=== PATIENT | female | born 1995 | race Caucasian/White ===

== ENCOUNTER 2016-08-02 04:51 | Emergency (ER) | payer OTHER ==
--- NOTE | 2016-08-02 06:42 | ED NURSING NOTES ---
Clinical Report - Nurses [facility] [address] [place] [address] 08/02/2016 4:52 Patient: DANIELLE TOWNSEND TRIAGE Triage time 04:57 Aug 02 2016. Acuity: LEVEL 4. Chief Complaint: PELVIC PAIN and PAINFUL URINATION. --05:01 Craig Campuzano R.N. 04:57 08/02/16. BP: 122/76. HR: 75. RR: 18. O2 saturation: 100%. Temp: 97.7 F. Pain level now 10/27. --05:01 Craig Campuzano R.N. Weight: 56.6 kg stated. Height/Length: 63 inches Per Patient. BMI: 22.1. Growth Chart Percentile: Weight: 44.2%. Height/Length: 30.5%. --04:59 Craig Campuzano R.N. Medications None. --04:58 Craig Campuzano R.N. Allergies Naproxen. --04:58 Craig Campuazno R.N. History Arrived by private vehicle. ( Pt reports abd pain that started an hour ago and urinary pain that started at 2am). This started today. SOCIAL HX: Never smoker. Alcohol use; consumes beer occasionally. No drug use. --05:01 Craig Campuzano R.N. PROBLEMS: Abdominal Pain. Gastritis. LNMP - Last Normal Menstrual Period. Migraine Headache. Back Pain. --04:59 Craig Campuzano R.N. ADDITIONAL SURGERIES: Dental Surgery. --04:59 Craig Campuzano R.N. Interventions ID band on patient. To treatment room. --05:01 Craig Campuzano R.N. PHYSICAL ASSESSMENT GENERAL / NEURO / PSYCH: Alert. Oriented X 4. Appears in no acute distress. RESPIRATORY: Respirations not labored. Breath sounds within normal limits. CVS: Normal heart rate and rhythm. Capillary refill less than 2 seconds. GI / : Abdominal tenderness in the periumbilical area. SKIN: Skin is warm and dry. --05:01 Craig Campuzano R.N. GENERAL / NEURO / PSYCH: Alert. Oriented X 4. Appears in no acute distress. Appears in pain. RESPIRATORY: Respirations not labored. Breath sounds within normal limits. CVS: Capillary refill less than 2 seconds. GI / : Abdomen nontender. No vaginal bleeding. No vaginal discharge. No genital lesions noted. SKIN: Skin is warm and dry. --06:44 Craig Campuzano R.N. NURSING PROGRESS NOTES Reassurance given to the patient. Call light placed in reach. Side rails up x 1. --05:01 Craig Campuzano R.N. 05:19 08/02/2016 Zofran ODT (Ondansetron) PO Oral Disintegrating Tablets 4 mg given. Allergies verified and confirmed 5 rights. --05:19 Thea Guzman R.N. ( pt given sprite to "wash down" Zofran, per pt request and verbal ok from EDMD). --05:20 Thea Guzman R.N. 05:32 08/02/2016 Toradol (Ketorolac Tromethamine) IM 60 mg given. Allergies verified and confirmed 5 rights. (R deltoid). --05:32 Craig Campuzano R.N. DISPOSITION / DISCHARGE Departure time: 06:58 Aug 02 2016. Condition at departure: improved. No learning barriers present. Discharge instructions provided and reviewed with the patient. Reviewed warnings. Reviewed medication(s) information. Patient verbalized understanding. The patient was discharged by the physician. She was discharged home. She left the Emergency Department ambulatory and via private vehicle. Patient driving. ( Pt verbalized understanding of discharge instructions and follow up care as well as medication admin.). --06:58 Craig Campuznao R.N. 06:56 08/02/16. BP: 141/91. HR: 66. RR: 18. O2 saturation: 100%. Temp: 97.8 F. Pain level now 08/27. --06:58 Craig Campuzano R.N. Locked/Released at 08/02/2016 6:59 by Craig Campuzano R.N.
--- NOTE | 2016-08-02 06:42 | ED ORDER SUMMARY ---
..... Patient: DANIELLE TOWNSEND OrderSheet [facility] VisitID: [id number] [address] [place] [address] 20y, F Registration Date/Time: 08/02/2016 ORDER SHEET Weight: 56.6 kg (stated) Allergies: Naproxen GENERAL ORDERS: UA-Culture if indicated Urgent (04:55 08/02/2016 AMcQuoid ER Tech1 per protocol) (4:58 AMcQuoid ER Tech1) Urine Urgent (04:55 08/02/2016 AMcQuoid ER Tech1 per protocol) (4:58 AMcQuoid ER Tech1) CT Abd/Pel wo Cont (Left side) Urgent (05:26 08/02/2016 Hafsa Gold) (Ack 5:37 AMcQuoid ER Tech1) (5:50 Dallin) Not a true NSAID allergy MEDICATION ORDERS: Zofran ODT PO 4 mg (NOW) (05:18 08/02/2016 Hafsa Gold) (5:19 Stacy R.N.) Toradol IM 60 mg (NOW) (05:25 08/02/2016 Hafsa Gold) (5:32 Teo R.N.) Not a true NSAID allergy IV FLUIDS: ORDER SHEET NOTES: [Electronically signed by Dexter Gonzalez Dr. (06:44 08/02/2016)] [Electronically signed by Craig Campuzano R.N. (06:59 08/02/2016)] [Electronically locked/signed by Craig Campuzano R.N. (06:59 08/02/2016)]
--- NOTE | 2016-08-02 06:42 | ED CLINICAL REPORT ---
Clinical Report - Physicians/Mid Levels [facility] [address] [place] [address] 08/02/2016 4:52 Patient: DANIELLE TOWNSEND Time Seen: 05:09; initial patient contact. Arrived- By private vehicle. Historian- patient. HISTORY OF PRESENT ILLNESS Chief Complaint: PELVIC PAIN. This started just prior to arrival and still present. The symptoms are described as moderate. Modifying factors. Not worsened by anything. Not relieved by anything. The patient has had abdominal pain, pelvic pain and flank pain. No vaginal pain, low back pain, pain with urination, urinary frequency or urgency of urination. No hematuria. She has had irregular periods (Implanon, at baseline). control measures utilized. Denies current . Similar symptoms previously: Several times. Recent medical care: Not recently seen/assessed. REVIEW OF SYSTEMS The patient has had nausea. No vomiting, diarrhea or vomiting. She has had nausea. All systems otherwise negative, except as recorded above. PAST HISTORY ( Abdominal Pain. Gastritis. Migraine Headache. Back Pain. Kidney stones SURGERIES: Dental Surgery.). Medications: None. Allergies: Naproxen. SOCIAL HISTORY Never smoker. Occasional alcohol use. No drug use. ADDITIONAL NOTES The nursing notes have been reviewed with agreement regarding the chief complaint, PMH and patient medications and allergies. PHYSICAL EXAM Vital Signs: 08/02/2016 04:57 BP: 122/76. HR: 75. RR: 18. O2 saturation: 100%. Temp: 97.7 F. Have been reviewed as normal. Appearance: Alert. Oriented X3. No acute distress. HEENT: Normal external inspection. ENT: Pharynx normal. CVS: Heart sounds normal. Rate normal. Rhythm normal. Respiratory: No respiratory distress. Breath sounds normal. Abdomen: Soft. Mild tenderness in the left side of the abdomen with guarding present. No rebound tenderness. Bowel sounds normal. No organomegaly. No mass. Back: Mild CVA tenderness on the left. Skin: Normal skin color. No rash. Extremities: No lower extremity edema. Neuro: Oriented X 3. LABS, X-RAYS, AND EKG Abdominal CT: 1-2 mm stone in distal ureter at the UVJ w/ moderate hydronephrosis. Study type: renal stone evaluation. Abdominal CT performed without contrast. The study was independently viewed by me, interpreted by the radiologist and discussed with the radiologist. Prior studies were not available for comparison. Interpretation time: 06:40. Laboratory Tests: UA-Culture if indicated: ([place]: 08/02/2016 05:00) ( MsgRcvd 08/02/2016 05:13) Final results Test Result Flag Units (Reference) URINE COLOR YELLOW URINE APPEARANCE CLEAR URINE GLUCOSE NEGATIVE (NEGATIVE) URINE BILIRUBIN NEGATIVE (NEGATIVE) URINE KETONE NEGATIVE (NEGATIVE) URINE SPECIFIC GRAVITY >= 1.030 (1.010-1.030) URINE PH 6.0 (5.0-8.0) URINE PROTEIN NEGATIVE (NEGATIVE) URINE UROBILINOGEN 0.2 EU/dL (0.2-1.0) URINE NITRITE NEGATIVE (NEGATIVE) URINE BLOOD 3+ (NEGATIVE) URINE LEUK ESTERASE NEGATIVE (NEGATIVE) URINE RBC 5-10 rbc/hpf (0-1) URINE WBC 0-1 wbc/hpf (0-1) URINE EPITHELIAL CELLS 0-1 EPI/hpf (0-5) URINE BACTERIA NONE SEEN (NONE SEEN) URINE COMMENT CULT NOT INDICATED URINE CULTURES ARE SET-UP BASED ON THE FOLLOWING CRITERIA:POSITIVE NITRITEPOSITIVE LEUKOCYTE ESTERASEGREATER THAN 10 WHITE BLOOD CELLSMODERATE (2+) OR GREATER BACTERIA Urine: ([place]: 08/02/2016 05:00) ( MsgRcvd 08/02/2016 05:11) Final results Test Result Flag Units (Reference) URINE NEGATIVE . PROGRESS AND PROCEDURES Disposition: Discharged home in good and improved condition. Condition: good. CLINICAL IMPRESSION Ureterolithiasis (single stone) in the left ureter with renal colic and hydronephrosis. INSTRUCTIONS Do not work today or go to school today. Your Current Medications: CONTINUE TAKING THE FOLLOWING MEDICATIONS: None*. Prescription Medications: Hydrocodone/APAP 5mg / 325mg: take 1 orally every 6 hours as needed for pain. Dispense fifteen (15). No refill. Zofran (orally disintegrating tablets) 4 mg: take 1 orally every 6 hours as needed for nausea and vomiting. Dispense ten (10). No refill. Substitution is permissible. Flomax 0.4 mg: take 1 orally every 6 hours. Take dose every day 30 minutes after the same meal. Dispense fifteen (15). No refills. Substitution is permissible. Follow-up: Follow up with your doctor in about four days if not better. Call for an appointment. Screening today revealed the patient's blood pressure to be in the pre-hypertensive range. The patient should follow up with a primary care provider for blood pressure management. (Electronically signed by Dexter Gonzalez Dr. 08/02/2016 6:44)
--- NOTE | 2016-08-02 06:42 | ED ORDER SUMMARY ---
..... Patient: DANIELLE TOWNSEND OrderSheet [facility] VisitID: [id number] [address] [place] [address] 20y, F Registration Date/Time: 08/02/2016 ORDER SHEET Weight: 56.6 kg (stated) Allergies: Naproxen GENERAL ORDERS: UA-Culture if indicated Urgent (04:55 08/02/2016 AMcQuoid ER Tech1 per protocol) (4:58 AMcQuoid ER Tech1) Urine Urgent (04:55 08/02/2016 AMcQuoid ER Tech1 per protocol) (4:58 AMcQuoid ER Tech1) CT Abd/Pel wo Cont (Left side) Urgent (05:26 08/02/2016 Hafsa Gold) (Ack 5:37 AMcQuoid ER Tech1) (5:50 Dallin) Not a true NSAID allergy MEDICATION ORDERS: Zofran ODT PO 4 mg (NOW) (05:18 08/02/2016 Hafsa Gold) (5:19 Stacy R.N.) Toradol IM 60 mg (NOW) (05:25 08/02/2016 Hafsa Gold) (5:32 Teo R.N.) Not a true NSAID allergy IV FLUIDS: ORDER SHEET NOTES: [Electronically signed by Dexter Gonzalez Dr. (06:44 08/02/2016)] [Electronically signed by Craig Campuzano R.N. (06:59 08/02/2016)] [Electronically locked/signed by Craig Campuzano R.N. (06:59 08/02/2016)]
--- NOTE | 2016-08-02 06:59 | ED MED RECONCILIATION SUMMARY ---
Patient: CARLTONNIDHI DANIELLE Medication Reconciliation Report [facility] VisitID: [id number] [address] [place] [address] 20y, F Registration Date/Time: 08/02/2016 Weight: 56.6 kg Height/Length: 63 in. BMI: 22.1 ALLERGIES: Naproxen The patient's Home Medications are listed below: NONE. The source(s) of the original Home Medication information: Not obtained. The following Medications were given to the patient in the Emergency Department: Zofran ODT [PO] PO 4 mg, administered: 08/02/2016 5:19:00 AM Toradol [IM] IM 60 mg, administered: 08/02/2016 5:32:00 AM The following Medications were prescribed to the patient: Hydrocodone/APAP 5mg / 325mg: take 1 orally every 6 hours as needed for pain. Dispense fifteen (15). No refill. -- Dexter Gonzalez Dr. Zofran (orally disintegrating tablets) 4 mg: take 1 orally every 6 hours as needed for nausea and vomiting. Dispense ten (10). No refill. Substitution is permissible. -- Dexter Gonzalez Dr. Flomax 0.4 mg: take 1 orally every 6 hours. Take dose every day 30 minutes after the same meal. Dispense fifteen (15). No refills. Substitution is permissible. -- Dexter Gonzalez Dr.
--- NOTE | 2016-08-02 06:59 | ED MAR SUMMARY ---
..... Medication Administration Record [facility] [address] [place] [address] Patient: DANIELLE TOWNSEND Visit ID: [id number] 20y, F Weight: 56.6 kg Height/Length: 63 in BMI: 22.1 ALLERGIES: Naproxen Given 05:19 08/02/2016 Thea Guzman, R.N. Medication Administered: ZOFRAN ODT [PO] (ONDANSETRON), Dose: 4 mg Oral Disintegrating Tablets PO. Medication Ordered: Zofran ODT PO 4 mg (NOW). Given 05:32 08/02/2016 Craig Campuzano, R.N. Medication Administered: TORADOL [IM] (KETOROLAC TROMETHAMINE), Dose: 60 mg IM. Medication Ordered: Toradol IM 60 mg (NOW).
--- NOTE | 2016-08-02 06:59 | ED DISCHARGE INSTRUCTIONS ---
Patient: DANIELLE TOWNSEND General Instructions [facility] VisitID: [id number] [place] [address] 20y, F Registration Date/Time: 08/02/2016 Ureterolithiasis (single stone) in the left ureter with renal colic and hydronephrosis. INSTRUCTIONS Do not work today or go to school today. Your Current Medications: CONTINUE TAKING THE FOLLOWING MEDICATIONS: None*. Prescription Medications: Hydrocodone/APAP 5mg / 325mg: take 1 orally every 6 hours as needed for pain. Dispense fifteen (15). No refill. Zofran (orally disintegrating tablets) 4 mg: take 1 orally every 6 hours as needed for nausea and vomiting. Dispense ten (10). No refill. Substitution is permissible. Flomax 0.4 mg: take 1 orally every 6 hours. Take dose every day 30 minutes after the same meal. Dispense fifteen (15). No refills. Substitution is permissible. Follow-up: Follow up with your doctor in about four days if not better. Call for an appointment. Screening today revealed the patient's blood pressure to be in the pre-hypertensive range. The patient should follow up with a primary care provider for blood pressure management. ADDITIONAL INFORMATION Kidney Stone (W/ Colic) The sharp cramping pain and nausea/vomiting that you have is due to a small stone which has formed in the kidney and is now passing down a narrow tube (ureter) on its way to your bladder. Once it reaches your bladder, the pain will stop. The stone may pass in your urine stream in one piece. [The size may be 1/16" to 1/4" (1-6mm)]. Or, the stone may also break up into nathalie fragments which you may not even notice. Once you have had a kidney stone, you are at risk for developing another one in the future. Home Care: Drink plenty of fluids (at least 8 to 10 glasses of water a day). Most stones will pass on their own, but may take from a few hours to a few days. Sometimes the stone is too large to pass by itself and special methods will have to be used to remove the stone. Each time you urinate, do so in a jar. Pour the urine from the jar through the strainer and into the toilet. Continue doing this until 24 hours after your pain stops. By then, if there was a kidney stone, it should pass from your bladder. Some stones dissolve into sand-like particles and pass right through the strainer. In that case, you wont ever see a stone. Save any stone that you find in the strainer and bring it to your doctor for analysis. It may be possible to prevent certain types of stones from forming. Therefore, it is important to know what kind of stone you have. Try to stay as active as possible since this will help the stone pass. Do not stay in bed unless your pain prevents you from getting up. You may notice a red, pink or brown color to your urine. This is normal while passing a kidney stone. Follow Up with your doctor or return to this facility if the pain lasts more than 48 hours. Get Prompt Medical Attention if any of the following occur: Pain that is not controlled by the medicine given Repeated vomiting or unable to keep down fluids Weakness, dizziness or fainting Fever of 100.4F (38C) or higher, or as directed by your healthcare provider Passage of solid red or brown urine (can't see through it) or urine with lots of blood clots Unable to pass urine for 8 hours and increasing bladder pressure Hydrocodone Bitartrate, Acetaminophen Oral tablet What is this medicine? ACETAMINOPHEN; HYDROCODONE (a set a GREG tirso fen; aly droe KOE done) is a pain reliever. It is used to treat mild to moderate pain. How should I use this medicine? Take this medicine by mouth. Swallow it with a full glass of water. Follow the directions on the prescription label. If the medicine upsets your stomach, take the medicine with food or milk. Do not take more than you are told to take. Talk to your monitor and storage bin tender regarding the use of this medicine in children. This medicine is not approved for use in children. What side effects may I notice from receiving this medicine? Side effects that you should report to your doctor or health long term care phlebotomist as soon as possible: allergic reactions like skin rash, itching or hives, swelling of the face, lips, or tongue breathing problems confusion feeling faint or lightheaded, falls stomach pain yellowing of the eyes or skin Side effects that usually do not require medical attention (report to your doctor or health long term care phlebotomist if they continue or are bothersome): nausea, vomiting stomach upset What may interact with this medicine? alcohol antihistamines isoniazid medicines for depression, anxiety, or psychotic disturbances medicines for sleep muscle relaxants naltrexone narcotic medicines (opiates) for pain phenobarbital ritonavir tramadol What if I miss a dose? If you miss a dose, take it as soon as you can. If it is almost time for your next dose, take only that dose. Do not take double or extra doses. Where should I keep my medicine? Keep out of the reach of children. This medicine can be abused. Keep your medicine in a safe place to protect it from theft. Do not share this medicine with anyone. Selling or giving away this medicine is dangerous and against the law. Store at room temperature between 15 and 30 degrees C (59 and 86 degrees F). Protect from light. Keep container tightly closed. Throw away any unused medicine after the expiration date. Discard unused medicine and used packaging carefully. Pets and children can be harmed if they find used or lost packages. What should I tell my health care provider before I take this medicine? They need to know if you have any of these conditions: brain tumor Crohn's disease, inflammatory bowel disease, or ulcerative colitis drink more than 3 alcohol-containing drinks per day drug abuse or addiction head injury heart or circulation problems kidney disease or problems going to the bathroom liver disease lung disease, asthma, or breathing problems an unusual or allergic reaction to acetaminophen, hydrocodone, other opioid analgesics, other medicines, foods, dyes, or preservatives or trying to get breast-feeding What should I watch for while using this medicine? Tell your doctor or health long term care phlebotomist if your pain does not go away, if it gets worse, or if you have new or a different type of pain. You may develop tolerance to the medicine. Tolerance means that you will need a higher dose of the medicine for pain relief. Tolerance is normal and is expected if you take the medicine for a long time. Do not suddenly stop taking your medicine because you may develop a severe reaction. Your body becomes used to the medicine. This does NOT mean you are addicted. Addiction is a behavior related to getting and using a drug for a non-medical reason. If you have pain, you have a medical reason to take pain medicine. Your doctor will tell you how much medicine to take. If your doctor wants you to stop the medicine, the dose will be slowly lowered over time to avoid any side effects. You may get drowsy or dizzy when you first start taking the medicine or change doses. Do not drive, use machinery, or do anything that may be dangerous until you know how the medicine affects you. Stand or sit up slowly. There are different types of narcotic medicines (opiates) for pain. If you take more than one type at the same time, you may have more side effects. Give your health care provider a list of all medicines you use. Your doctor will tell you how much medicine to take. Do not take more medicine than directed. Call emergency for help if you have problems breathing. The medicine will cause constipation. Try to have a bowel movement at least every 2 to 3 days. If you do not have a bowel movement for 3 days, call your doctor or health long term care phlebotomist. Too much acetaminophen can be very dangerous. Do not take Tylenol (acetaminophen) or medicines that contain acetaminophen with this medicine. Many non-prescription medicines contain acetaminophen. Always read the labels carefully. Ondansetron Oral disintegrating tablet What is this medicine? ONDANSETRON (on ZAHEER se cheri) is used to treat nausea and vomiting caused by chemotherapy. It is also used to prevent or treat nausea and vomiting after surgery. How should I use this medicine? These tablets are made to dissolve in the mouth. Do not try to push the tablet through the foil backing. With dry hands, peel away the foil backing and gently remove the tablet. Place the tablet in the mouth and allow it to dissolve, then swallow. While you may take these tablets with water, it is not necessary to do so. Talk to your monitor and storage bin tender regarding the use of this medicine in children. Special care may be needed. What side effects may I notice from receiving this medicine? Side effects that you should report to your doctor or health long term care phlebotomist as soon as possible: allergic reactions like skin rash, itching or hives, swelling of the face, lips, or tongue breathing problems dizziness fast or irregular heartbeat feeling faint or lightheaded, falls fever and chills swelling of the hands and feet tightness in the chest Side effects that usually do not require medical attention (report to your doctor or health long term care phlebotomist if they continue or are bothersome): constipation or diarrhea headache What may interact with this medicine? Do not take this medicine with any of the following medications: -apomorphine -cisapride -dofetilide -dronedarone -pimozide -thioridazine -ziprasidone This medicine may also interact with the following medications: -carbamazepine -phenytoin -rifampicin -tramadol -other medicines that prolong the QT interval (cause an abnormal heart rhythm) What if I miss a dose? If you miss a dose, take it as soon as you can. If it is almost time for your next dose, take only that dose. Do not take double or extra doses. Where should I keep my medicine? Keep out of the reach of children. Store between 2 and 30 degrees C (36 and 86 degrees F). Throw away any unused medicine after the expiration date. What should I tell my health care provider before I take this medicine? They need to know if you have any of these conditions: heart disease history of irregular heartbeat liver disease low levels of magnesium or potassium in the blood an unusual or allergic reaction to ondansetron, granisetron, other medicines, foods, dyes, or preservatives or trying to get breast-feeding What should I watch for while using this medicine? Check with your doctor or health long term care phlebotomist as soon as you can if you have any sign of an allergic reaction. You have been given the following additional information: Kidney Stone W/ Colic Hydrocodone Bitartrate, Acetaminophen Oral tablet Ondansetron Oral disintegrating tablet Do not work today or go to school today. (Electronically signed by Dexter Gonzalez Dr. 08/02/2016 6:44)
--- NOTE | 2016-08-02 06:59 | ED MAR SUMMARY ---
..... Medication Administration Record [facility] [address] [place] [address] Patient: DANIELLE TOWNSEND Visit ID: [id number] 20y, F Weight: 56.6 kg Height/Length: 63 in BMI: 22.1 ALLERGIES: Naproxen Given 05:19 08/02/2016 Thea Guzman, R.N. Medication Administered: ZOFRAN ODT [PO] (ONDANSETRON), Dose: 4 mg Oral Disintegrating Tablets PO. Medication Ordered: Zofran ODT PO 4 mg (NOW). Given 05:32 08/02/2016 Craig Campuzano, R.N. Medication Administered: TORADOL [IM] (KETOROLAC TROMETHAMINE), Dose: 60 mg IM. Medication Ordered: Toradol IM 60 mg (NOW).
--- NOTE | 2016-08-02 06:59 | ED MED RECONCILIATION SUMMARY ---
Patient: CARLTONNIDHI DANIELLE Medication Reconciliation Report [facility] VisitID: [id number] [address] [place] [address] 20y, F Registration Date/Time: 08/02/2016 Weight: 56.6 kg Height/Length: 63 in. BMI: 22.1 ALLERGIES: Naproxen The patient's Home Medications are listed below: NONE. The source(s) of the original Home Medication information: Not obtained. The following Medications were given to the patient in the Emergency Department: Zofran ODT [PO] PO 4 mg, administered: 08/02/2016 5:19:00 AM Toradol [IM] IM 60 mg, administered: 08/02/2016 5:32:00 AM The following Medications were prescribed to the patient: Hydrocodone/APAP 5mg / 325mg: take 1 orally every 6 hours as needed for pain. Dispense fifteen (15). No refill. -- Dexter Gonzalez Dr. Zofran (orally disintegrating tablets) 4 mg: take 1 orally every 6 hours as needed for nausea and vomiting. Dispense ten (10). No refill. Substitution is permissible. -- Dexter Gonzalez Dr. Flomax 0.4 mg: take 1 orally every 6 hours. Take dose every day 30 minutes after the same meal. Dispense fifteen (15). No refills. Substitution is permissible. -- Dexter Gonzalez Dr.
--- NOTE | 2016-08-02 07:35 | DIAGNOSTIC IMAGING REPORT ---
PROCEDURE: CT ABDOMEN/PELVIS W/O CONTRAST INDICATION: FLANK PAIN TECHNIQUE: Axial CT images were obtained through the abdomen and pelvis without IV contrast. Coronal and sagittal reformations were created. COMPARISON: None. FINDINGS: Mild to moderate left hydronephrosis. Mild left hydroureter. Punctate nonobstructing calcification in the lower pole left kidney. No other intrarenal calcifications. Otherwise normal renal morphology. Clear lung bases. Normal size heart. No hiatal hernia. The unenhanced appearance of the liver, gallbladder, adrenal glands, kidneys, pancreas and spleen is normal. The abdominal aorta is normal in its course and caliber. There are no suspicious calcifications, retroperitoneal adenopathy or masses. The stomach, upper bowel loops, and mesentery appears normal. Intact anterior abdominal wall. No free fluid, or inflammation. 2 mm calcification in the urinary bladder at the left ureterovesicular junction. Moderately increased amount of rectal stool present. The unenhanced appearance of the uterus, ovaries, pelvic vessels, and pelvic bowel loops is normal. Normal appendix. No suspicious calcifications, free fluid, or mass. Intact osseous structures. IMPRESSION: 1. 2 mm left UVJ calcification causing mild to moderate hydroureteronephrosis. 2. Punctate nonobstructing left lower pole intrarenal calcification. 3. Preliminary report by Dr. Álvaro Tinoco of [facility] radiology. All CT scans at this facility use dose modulation, iterative reconstruction, and/or weight-based dosing when appropriate to reduce radiation dose to as low as reasonably achievable.
== END 2016-08-02 06:48 | disposition home or self-care (01) ==
LOC: ED SRH 04:51
DX: N13.2 Hydronephrosis with renal and ureteral calculous obstruction (principal); Z88.6 Allergy status to analgesic agent
CPT/HCPCS: 90004; 93070